=== PATIENT | male | born 1940 | race Caucasian/White ===

== ENCOUNTER 2018-03-25 16:54 | Emergency (ER) | payer OTHER ==
[~2018-03-25] VITALS: Ht 177.8 cm; Wt 74.8 kg
[~2018-03-25 16:54] MED LIST: ASPIR 8181 MG PO; CENTRUM SILVER1 EAC2 PO; LIPITOR 20 MG T20 M1 PO; METOPROLOL SUCC50 MG PO
[2018-03-25] MEDS ORDERED: LIPITOR 20 MG T20 M1 PO (17:12)
[2018-03-25] MEDS ORDERED: UNICOMPLEX M TA1 TA1 PO (17:12)
[2018-03-25] MEDS ORDERED: ASPIR 8181 MG PO (17:12)
[2018-03-25] MEDS ORDERED: LOPRESSOR50 PO (17:12)
[2018-03-25 17:30] VITALS: BP 166/113
== END 2018-03-25 17:31 | disposition home or self-care (01) ==
LOC: M.ERS 16:54
DX: S61.200A Unspecified open wound of right index finger without damage to nail, initial encounter (principal); I10 Essential (primary) hypertension; E78.00 Pure hypercholesterolemia, unspecified; G56.00 Carpal tunnel syndrome, unspecified upper limb; Z85.46 Personal history of malignant neoplasm of prostate; W26.8XXA Contact with other sharp object(s), not elsewhere classified, initial encounter; Y93.89 Activity, other specified; Y92.89 Other specified places as the place of occurrence of the external cause; Y99.8 Other external cause status

== ENCOUNTER → 2019-07-30 | Outpatient (CLI) | payer MEDICARE ==
[~2019-07-30] MED LIST changes: +LOPRESSOR50 PO; +UNICOMPLEX M TA1 TA1 PO
== END ==
LOC: M.RAD 09:42
DX: M41.86 Other forms of scoliosis, lumbar region (principal); M25.78 Osteophyte, vertebrae; I70.0 Atherosclerosis of aorta; M43.8X6 Other specified deforming dorsopathies, lumbar region

== ENCOUNTER 2020-04-26 14:28 | Inpatient (IN) | payer MEDICARE ==
[~2020-04-26] VITALS: Ht 177.8 cm; Wt 74.4 kg
--- NOTE | ~2020-04-26 | CON ---
[address] [address] CONSULTATION Name: MIO PAGE Room: [address] IN M.R.#: [id number] Admission: 04/26/20 Attend Phys: Corina Aj MD Discharge: Date of : 42 Report #: [id number] THIS REPORT FOR: //name// cc: Dagoberto Neil Meng, Zhao ~ THIS REPORT FOR: //name// DATE OF SERVICE: 04/26/2020 CARDIOLOGY CONSULTATION INDICATION: Atrial fibrillation and non-ST elevation myocardial infarction. HISTORY OF PRESENT ILLNESS: The patient is a 79-year-old white male with no prior history of atrial fibrillation or coronary artery disease. He has a history of supraventricular tachycardia, status post ablation 3-4 years ago at [facility]. The patient has been having fatigue and intermittent midsternal chest discomfort for the past 4 days. A few days ago, he had a significant episode associated with some diaphoresis that resolved spontaneously. He denies palpitations. He denies any significant shortness of breath, dyspnea or orthopnea. He is without other cardiac complaint at this time. There was no radiation of the pain. Pain was not worse with deep inspiration. No change with food intake. A 12-lead EKG in the Emergency Room shows atrial fibrillation with a rapid ventricular response rate. There is voltage criteria to suggest LVH. PAST MEDICAL HISTORY: 1. Supraventricular tachycardia, status post ablation. 2. Hypertension. 3. Hyperlipidemia. 4. Prostate cancer, status post radiation therapy. 5. Nephrolithiasis. 6. Carpal tunnel release. 7. Prostate cancer, status post radiation therapy. 8. Full extraction of teeth with full dentures. FAMILY HISTORY: Noncontributory. SOCIAL HISTORY: The patient quit smoking remotely. Drinks alcohol occasionally. ALLERGIES: None reported. CURRENT MEDICATIONS: Metoprolol 50 mg daily, atorvastatin 20 mg daily, aspirin 81 mg daily, multivitamin with iron and minerals 1 [place] [address] CONSULTATION Name: MIO PAGE Kayden Room: [address]#: [id number] Admission: 04/26/20 Attend Phys: Corina Aj MD Discharge: Date of : 42 Report #: [id number] REVIEW OF SYSTEMS: Positive for fatigue, cough, low-grade fever, chest discomfort and joint pain, otherwise unremarkable. PHYSICAL EXAMINATION: VITAL SIGNS: Blood pressure 138/78, pulse is in the 90s and irregular. GENERAL: This is a pleasant gentleman in no distress. Mood and affect appropriate. HEENT: Head is normocephalic, atraumatic. Extraocular muscles intact. Mucous membranes are moist. NECK: Shows no jugular venous distention. There are no carotid bruits. CHEST: Reveals clear lung centeno, although breath sounds are diminished with prolonged expiration. CARDIOVASCULAR: Reveals an irregularly irregular rhythm. I do not appreciate gallop or murmur. ABDOMEN: Reveals normal bowel sounds. The abdomen is soft, nontender. EXTREMITIES: Shows no edema. Peripheral pulses 2+ and palpable. SKIN: Dry. LABORATORY DATA: A 12-lead EKG shows atrial fibrillation with a rapid ventricular response rate. There is evidence of left ventricular hypertrophy. There were no significant ST segment changes noted. Labs are reviewed. Peak troponin is thus far 0.3. Chest x-ray shows possible mild fibrosis. CTA of the chest shows no evidence of pulmonary embolus. There was mention of the left lower lobe infiltrate, possibly consistent with pneumonia. Also mention was coronary calcification consistent with underlying coronary artery disease. IMPRESSION AND RECOMMENDATIONS: 1. Atrial fibrillation with a moderately fast rate. We will place on amiodarone drip with bolus in an effort to establish rhythm and rate control. We will anticoagulate with heparin drip at this time. 2. Non-ST elevation myocardial infarction. Recommend invasive evaluation with coronary angiography. Further intervention will be pending the results of that study. Continue daily aspirin. 3. Hypertension. Blood pressure appears stable at this time. We will make adjustments [place] [address] CONSULTATION Name: PAGEMIO Room: [address] IN ..#: [id number] Admission: 04/26/20 Attend Phys: Corina Aj MD Discharge: Date of : 42 Report #: [id number] 4. Dyslipidemia. Continue atorvastatin at current dose. Check fasting lipid profile. By: 1742 2039[facility] Healthkayden Mcmanus MD, FACC /nt
[~2020-04-26 14:28] MED LIST changes: -AZITHROMYCIN 2250 MG PO; -CEFDINIR300 MG PO; -EFFIENT10 MG PO; -ELIQUIS5 MG PO; -NITROGLYCERIN0.4 MG SUBLING; -PACERONE 200 M200 M1 PO
[2020-04-26 14:57] LABS: ABSOLUTE BASOPHILS 0.1 thou/uL (0.0-0.2); ABSOLUTE EOSINOPHILS 0.1 thou/uL (0.0-0.7); ABSOLUTE LYMPHOCYTES 1.2 thou/uL (0.8-5.3); ABSOLUTE MONOCYTES 0.6 thou/uL (0.0-1.2); ABSOLUTE NEUTROPHILS 5.9 thou/uL (1.6-8.1); BASOPHILS 0.7 %; EOSINOPHILS 0.8 %; HEMATOCRIT 35.2 % (42.0-52.0); HEMOGLOBIN 11.7 gm/dL (14.0-18.0); MCH 29.8 pg (26.0-34.0); MCHC 33.2 g/dL (28.0-37.0); MCV 89.9 fL (80.0-100.0); MONOCYTES 8.1 %; MPV 7.9 fl. (7.2-11.1); NUCLEATED RBCS 0 /100WBC; PLATELET COUNT* 250 thou/uL (150-400); POLYS 75.4 %; RBC 3.91 mil/uL (4.50-6.00); RDW-CV 13.6 % (10.5-14.5); WBC 7.8 thou/uL (4.0-11.0)
[2020-04-26 15:05] LABS: CALCIUM 8.7 mg/dL (8.5-10.1); CREATININE 1.1 mg/dL (0.6-1.3); POTASSIUM 3.1 mmol/L (3.5-5.1)
[2020-04-26 15:11] LABS: APTT 26.1 Seconds (25.0-31.3); PROTIME 10.7 Seconds (9.20-11.50)
[2020-04-26 15:18] LABS: ALBUMIN 3.2 g/dL (3.4-5.0); MAGNESIUM 1.9 mg/dL (1.8-2.4); TOTAL BILIRUBIN 0.6 mg/dL (<0.1-1.0); TOTAL PROTEIN 8.4 g/dL (6.4-8.2)
--- NOTE | 2020-04-26 16:04 | EKG ---
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: MELY : 1940 Requested By: Henok Monsivais Order Number: [id number] MD: Sinan Zuluaga Measurements Intervals [place] Rate: 129 P: [place]: QRS: 38 QRSD: 86 T: 77 QT: 326 QTc: 478 Interpretive Statements Atrial fibrillation with a rapid ventricular response Baseline wander in lead(s) II,III,aVL,aVF,V3 No previous ECG available for comparison Electronically Signed On 04-26-2020 16:03:59 CDT by Sinan Zuluaga [email or web address] <ELECTRONICALLY SIGNED> By: Sinan Zuluaga MD, FAC 04/26/20 1603 1439 1439 Sinan Zuluaga MD, [facility] /EPI
[2020-04-26 21:00] VITALS: BP 139/75
[2020-04-26 21:16] VITALS: BP 124/60
[2020-04-27 00:56] LABS: HEMATOCRIT 29.8 % (42.0-52.0); HEMOGLOBIN 10.3 gm/dL (14.0-18.0); MCH 30.9 pg (26.0-34.0); MCHC 34.5 g/dL (28.0-37.0); MCV 89.5 fL (80.0-100.0); MPV 7.8 fl. (7.2-11.1); RBC 3.33 mil/uL (4.50-6.00); RDW-CV 13.2 % (10.5-14.5); WBC 6.8 thou/uL (4.0-11.0)
[2020-04-27 01:23] LABS: ANION GAP 7 mmol/L (7-16); BUN 11 mg/dL (7-18); CALCIUM 8.2 mg/dL (8.5-10.1); CHLORIDE 101 mmol/L (98-107); CHOLESTEROL 104 mg/dL (<200); CO2 27 mmol/L (21-32); CREATININE 0.9 mg/dL (0.6-1.3); GLUCOSE 106 mg/dL (70-99); HDL CHOLESTEROL 33 mg/dL (>40); LDL CHOLESTEROL 61 mg/dL (<100); MAGNESIUM 1.9 mg/dL (1.8-2.4); POTASSIUM 3.2 mmol/L (3.5-5.1); SERUM ASSESSMENT Clear; SODIUM 135 mmol/L (136-145); TC:HDL 3.2 Ratio (Not establshd); TRIGLYCERIDE 51 mg/dL (<150); TROPONIN-I LEVEL 0.19 ng/mL (<0.06); VLDL 10 mg/dL (<40)
[2020-04-27 04:22] VITALS: BP 165/90
[2020-04-27 08:00] VITALS: BP 154/81
--- NOTE | 2020-04-27 12:13 | 2DMMODE ---
[place] [address] 2 D/M-MODE ECHOCARDIOGRAM Name: CAMILOMIO Jana Room: [address] IN M.R.#: [id number] Admission: 04/26/20 Attend Phys: Corina Aj, Discharge: Date of : 42 Date of Service: 04/27/20 1212 Report #: [id number] THIS REPORT FOR: cc: Dagoberto Neil Meng, Zhao Holkins,Sinan Worthington MD [facility] ~ APPROVED REPORT Study performed: 04/27/2020 10:01:54 EXAM: Comprehensive 2D, Doppler, and color-flow Echocardiogram Patient Location: Bedside BSA: 1.92 HR: 75 bpm BP: 165/90 mmHg Other Information Study Quality: Good Indications Chest Pain 2D Dimensions IVSd: 18.81 (7-11mm) LVOT Diam: 20.61 (18-24mm) LVDd: 42.50 mm PWd: 11.96 (7-11mm) Ascending Ao: 34.23 (22-36mm) LVDs: 29.16 (25-40mm) Aortic Root: 29.32 mm Volumes Left Atrial Volume (Systole) LA ESV Index: 43.60 mL/m2 Aortic Valve AoV Peak Jose.: 1.34 m/s AO Peak Gr.: 7.14 mmHg LVOT Max P.27 mmHg AO Mean Gr.: 4.10 mmHg LVOT Mean P.79 mmHg LVOT Max V: 0.90 m/s AO V2 VTI: 23.29 cm LVOT Mean V: 0.63 m/s DAMION (VTI): 2.41 cm2 LVOT V1 VTI: 16.79 cm Mitral Valve E/A Ratio: 2.28 [place] [address] 2 D/M-MODE ECHOCARDIOGRAM Name: MIO PAGE Room: [address] IN M.R.#: [id number] Admission: 04/26/20 Attend Phys: Corina Aj, Discharge: Date of : 42 Date of Service: 04/27/20 1212 Report #: [id number] MV Decel. Time: 165.76 ms MV E Max Jose.: 0.80 m/s MV PHT: 48.07 ms MVA (PHT): 4.58 cm2 TDI E/Lateral E': 8.00 E/Medial E': 8.89 Medial E' Jose.: 0.09 m/s Lateral E' Jose.: 0.10 m/s Pulmonary Valve PV Peak Jose.: 0.91 m/s PV Peak Gr.: 3.34 mmHg Tricuspid Valve RAP Estimate: 5.00 mmHg TR Peak Gr.: 36.75 mmHg RVSP: 41.75 mmHg PA Pressure: 41.75 mmHg Left Ventricle The left ventricle is normal size. There is normal LV segmental wall motion. Borderline concentric left ventricular hypertrophy. Left ventricular systolic function is normal. The left ventricular ejection fraction is within the normal range. LVEF is 55-60%. Right Ventricle The right ventricle is normal size. The right ventricular systolic function is normal. Atria Left atrium is mildly dilated. The right atrium size is normal. Aortic Valve Mild aortic valve sclerosis. No aortic regurgitation is present. There is no aortic valvular stenosis. Mitral Valve The mitral valve is normal in structure. Mild mitral regurgitation. No evidence of mitral valve stenosis. Tricuspid Valve The tricuspid valve is normal in structure. Mild tricuspid regurgitation. Pulmonic Valve The pulmonary valve is normal in structure. [place] [address] 2 D/M-MODE ECHOCARDIOGRAM Name: MIO PAGE Room: [address]#: [id number] Admission: 04/26/20 Attend Phys: Corina Aj, Discharge: Date of : 42 Date of Service: 04/27/20 1212 Report #: [id number] valvular regurgitation. Great Vessels The aortic root is normal in size. IVC is normal in size and collapses >50% with inspiration. Pericardium There is no pericardial effusion. <Conclusion> The left ventricle is normal size. Borderline concentric left ventricular hypertrophy. Left ventricular systolic function is normal. The left ventricular ejection fraction is within the normal range. LVEF is 55-60%. The right ventricle is normal size. Left atrium is mildly dilated. Mild aortic valve sclerosis. There is no aortic valvular stenosis. The mitral valve is normal in structure. Mild mitral regurgitation. The tricuspid valve is normal in structure. Mild tricuspid regurgitation. IVC is normal in size and collapses >50% with inspiration. There is no pericardial effusion. There is normal LV segmental wall motion. <ELECTRONICALLY SIGNED> By: Sinan Zuluaga MD, FACC 04/27/20 121 11 11 Sinan Zuluaga MD, FACC /INF
[2020-04-27 12:47] VITALS: BP 141/78
[2020-04-27 17:02] VITALS: BP 155/86
[2020-04-27 20:00] VITALS: BP 154/84
[2020-04-28] VITALS (13 sets, daily range): BP systolic 140–168; BP diastolic 60–94
[2020-04-28 05:01] LABS: HEMOGLOBIN 11.7 gm/dL (14.0-18.0); MCH 30.6 pg (26.0-34.0); MCHC 34.2 g/dL (28.0-37.0); MCV 89.4 fL (80.0-100.0); RBC 3.81 mil/uL (4.50-6.00); WBC 6.8 thou/uL (4.0-11.0)
[2020-04-28 05:22] LABS: CALCIUM 8.8 mg/dL (8.5-10.1); MAGNESIUM 2.2 mg/dL (1.8-2.4)
--- NOTE | 2020-04-28 15:53 | EKG ---
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: [facility] : 1940 Requested By: Carmine Mcmanus Order Number: [id number] Hamida MD: Carmine Mcmanus Measurements Intervals [place] Rate: 69 P: 66 ME: 182 QRS: 17 QRSD: 100 T: 64 QT: 443 QTc: 475 Interpretive Statements Sinus rhythm Compared to ECG 04/26/2020 14:39:06 Atrial fibrillation no longer present Electronically Signed On 04-28-2020 15:53:11 CDT by Carmine Mcmanus [email or web address] <ELECTRONICALLY SIGNED> By: Carmine Mcmanus MD, FACC 04/28/20 1553 1225 1225 Carmine Mcmanus MD, FACC /EPI
--- NOTE | 2020-04-28 17:20 | CARD ---
[address] [address] CARDIAC CATH REPORT Name: PAGEMIO Jana Room: [address] IN [facility]#: [id number] Admission: 04/26/20 Attend Phys: Corina Aj MD Discharge: Date of : 42 Report #: [id number] THIS REPORT FOR: //name// cc: Dagoberto Neil Meng, Zhao ~ APPROVED REPORT Study performed: 04/28/2020 07:37:45 Patient Details Patient Status: In-Patient Room #: The patient is a 79 year-old male Event Personnel Carmine Mcmanus Corporate Quality Engineer, Estela Oropeza RN RN, Woody Garcia RTR ScrubEsteban Jessie RTR Monitor, Sinan Zuluaga Soil Sampler Procedures Performed Art Access - R femoral artery Left Heart Cath w/or w/o Coronaries REYNA w/Atherectomy Single LAD PTCA Single Vessel DIAG Hemostasis w/ Angioseal Indication Unstable angina Risk Factors Hypercholesterolemia Admission/Lab Medications/Medications given during procedure Lidocaine Subcut 14 ml, Fentanyl IV 25 mcg, Midazolam (Versed) IV 1 mg, Oxygen Nasal cannula 2 l per min, 0.9% Sodium Chloride IV 75 ml per hr, Angiomax IV 12 ml, Angiomax Drip IV 27.79 ml per hr, Aspirin PO 162 mg, Effient PO 60 mg Procedure Narrative The patient was brought urgently to the Cardiac Catheterization Laboratory and was prepped and draped in a sterile manner. The right femoral was infiltrated with 2% Lidocaine subcutaneous anesthesia. A [place] 6 FR sheath was inserted into the right femoral artery. Coronary angiography was performed using coronary diagnostic catheters. The right coronary system was accessed and visualized with a Diagnostic 6 Fr JR 4 catheter. The left coronary system was accessed and visualized with a Diagnostic 6 Fr JL [place] [address] CARDIAC CATH REPORT Name: PAGEDIANESHIVA Bates Room: [address] IN [facility]#: [id number] Admission: 04/26/20 Attend Phys: Corina Aj MD Discharge: Date of : 42 Report #: [id number] left ventricle was accessed and visualized with a Diagnostic 6 Fr Pigtail catheter. Left ventricular/Aortic Valve gradient assessed via catheter pullback. Left ventriculogram was performed in BURRIS projection. Pre-demployment femoral angiogram was performed BURRIS. Closure device was deployed with a Fr Angioseal STS 6Fr. The patient tolerated the procedure well and there were no complications associated with the procedure. There was no hematoma. Intraoperative Conscious Sedation Sedation start time: 08:46 Case end Time: 09:55 Fentanyl 50 mcg Versed 2 mg Fluoro Time: 18.1 minutes Dose: DAP [id number] cGycm2 2614 mGy Contrast Type and Amount: Visipaque 345 ml Diagnostic Cath Left Main 0% narrowing LAD 80% mid vessel stenosis with 80% ostial first diagonal stenosis Circumflex Sequential 90 and 80% stenosis of the distal circumflex after the takeoff of the second marginal branch Right Coronary Large dominant vessel with 30% proximal mid and distal narrowings and aneurysmal dilatation of several segments Left Ventriculography The left ventricle is normal in size with contractility. The left ventricular ejection fraction is estimated to be 65-70%. Left ventricular wall motion abnormalities are not present. There is no mitral insufficiency. Hemodynamics The aortic pressure is 172/90 mmHg with a mean of 125 mmHg. The left ventricular pressure is 173/17 mmHg with a mean of mmHg. The left ventricular end diastolic pressure is 23 mmHg. PCI Technique Lesion Anticoagulation was achieved with Angiomax Drip. Patient was preloaded with Angiomax IV 12 ml. Percutaneous coronary intervention was performed on the mid left anterior descending artery segment. The lesion stenosis prior to intervention was 80% with JESSE 3 flow. A 6FR LAUNCHER EBU 4.0 Guide Catheter was used to engage the left ostium. A IG: BMW 190cm Interventional Guidewire was [place] [address] CARDIAC CATH REPORT Name: MIO PAGE Room: [address] IN M.R.#: [id number] Admission: 04/26/20 Attend Phys: Corina Aj MD Discharge: Date of : 42 Report #: [id number] BALLOON DILATION A Balloon catheter NC Euphora 2.5x12 was inserted and inflated up to 18.00atm for 15seconds. Additional Inflation: 24.00atm for 11seconds. A cutting balloon catheter Angiosculpt PTCA 2.5 x 10 was inserted and inflated up to 12 KAITY for 16 seconds and 15 KAITY for14 seconds. STENT DEPLOYMENT A drug-eluting stent [place] RX Stent 2.5X12mm was inserted and inflated up to 14.00atm for 8seconds. Additional Inflation: 15.00atm for 8seconds. Final angiography reveals 10 % stenosis with JESSE 3 flow. COMMENTS The PCI was technically complex by severe calcification throughout the LAD system requiring significant lesion preparation including atherotomy/atherectomy prior to stent deployment in the mid LAD and with pre-and post PTCA of the first diagonal emanating from the bifurcation. PCI Technique Lesion 2 Percutaneous Coronary Intervention was performed on the first diagnonal branch segment. Patient was preloaded with Angiomax IV 12 ml. A 6FR LAUNCHER EBU 4.0 Guide Catheter was used to engage the left ostium. A blabfeed: 8th Story 180cm Interventional Guidewire was used to cross the lesion. Balloon Dilation A Balloon catheter Mini Trek RX 2.0 X 8 was inserted and inflated up to 8.00atm for 10seconds. Additional Inflation: 12.00atm for 10seconds. Additional Inflation: 12.00atm for 6seconds. A balloon catheter Mini Trek 1.5 x 8 was inserted and inflated up to 16 KAITY for 12 seconds and 18 KAITY for 9 seconds. Conclusion 1. 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 Hyperdynamic left ventricular systolic function, estimated ejection fraction being 65 -70% 3. Moderate systemic systolic hypertension with moderate elevation of left ventricular end-diastolic pressure at rest 4. Successful atherotomy/atherectomy with stenting of the mid LAD with 10% residual narrowing at the site of previously noted 80% calcified stenosis 5. Successful PTCA at the site of 80% ostial first diagonal stenosis with 30% residual narrowing and JESSE III flow to the distal diagonal branch Recommendations Cardiac Risk Reduction Program Aggressive Medical Therapy Medications Administered Aspirin (any) Prasugrel Diagnostic Cath Approved by: Carmine Mcmanus MD Date/Time: 04/28/2020 17:14:58 <ELECTRONICALLY SIGNED> By: Sinan Zuluaga MD, FACC 04/28/201719 19 19Sinan Zuluaga MD, FACC /INF
[2020-04-29] VITALS: BP 153/86
[2020-04-29 04:00] VITALS: BP 150/77
[2020-04-29 05:45] LABS: HEMATOCRIT 33.4 % (42.0-52.0); HEMOGLOBIN 11.2 gm/dL (14.0-18.0); MCHC 33.6 g/dL (28.0-37.0); MCV 89.4 fL (80.0-100.0); RBC 3.74 mil/uL (4.50-6.00); RDW-CV 13.1 % (10.5-14.5); WBC 12.1 thou/uL (4.0-11.0)
[2020-04-29 06:00] LABS: ALBUMIN 2.9 g/dL (3.4-5.0); CALCIUM 8.6 mg/dL (8.5-10.1); POTASSIUM 3.8 mmol/L (3.5-5.1); TOTAL BILIRUBIN 0.3 mg/dL (<0.1-1.0); TOTAL PROTEIN 7.7 g/dL (6.4-8.2)
[2020-04-29 07:45] VITALS: BP 175/101
[2020-04-29] MEDS ORDERED: NITROGLYCERIN0.4 MG SUBLING (08:22)
[2020-04-29] MEDS ORDERED: PACERONE 200 M200 M1 PO (08:22)
[2020-04-29] MEDS ORDERED: EFFIENT10 MG PO (08:22)
[2020-04-29] MEDS ORDERED: ELIQUIS5 MG PO (08:22)
[2020-04-29] MEDS ORDERED: CEFDINIR300 MG PO (10:09)
[2020-04-29] MEDS ORDERED: AZITHROMYCIN 2250 MG PO (10:09)
--- NOTE | 2020-04-29 11:21 | EKG ---
[place] [address] ELECTROCARDIOGRAM REPORT Name: MIO PAGE Room: [address] ADM IN .R.#: [id number] Admission: 04/26/20 Attend Phys: Corina Aj, Discharge: Date of : 42 Date of Service: 04/29/20 0731 Report #: [id number] THIS REPORT FOR: //name// [facility] Test Date: 2020-04-29 Test Time: 07:31:38 Pat Name: MIO PAGE Department: Room: [address] Gender: M Guidance Director: DEZ : 1940 Requested By: Carmine Mcmanus Order Number: [id number] Reading MD: Giovanni Billy Measurements Intervals [place] Rate: 67 P: 20 [place]: 182 QRS: -17 QRSD: 97 T: 36 QT: 457 QTc: 483 Interpretive Statements Sinus rhythm Borderline left axis deviation RSR' in V1 or V2, probably normal variant Borderline prolonged QT interval Baseline wander in lead(s) V1 Compared to ECG 04/28/2020 12:25:51 no change Electronically Signed On 04-29-2020 11:21:49 CDT by Giovanni Billy [email or web address] <ELECTRONICALLY SIGNED> By: Giovanni Billy MD, FACC 04/29/20 1121 Giovanni Billy MD, FACC /EPI
[2020-04-29 12:00] VITALS: BP 163/87
[2020-04-29 14:25] VITALS: BP 163/87
== END 2020-04-29 15:14 | disposition home or self-care (01) | DRG 246 ==
LOC: M.ERS 14:28 → M.TBA-ER 15:39 → M.2W 15:39
PROVIDERS: Family Medicine; Internal Medicine; Internal Medicine Cardiovascular Disease; ADMIT Internal Medicine; ATTEND Internal Medicine
PROC: B215YZZ Fluoroscopy of Left Heart using Other Contrast (ICD-10-PCS; principal; 2020-04-28)
PROC: 02C03ZZ Extirpation of Matter from Coronary Artery, One Artery, Percutaneous Approach (ICD-10-PCS; principal; 2020-04-28)
PROC: 4A023N7 Measurement of Cardiac Sampling and Pressure, Left Heart, Percutaneous Approach (ICD-10-PCS; principal; 2020-04-28)
PROC: 02703DZ Dilation of Coronary Artery, One Artery with Intraluminal Device, Percutaneous Approach (ICD-10-PCS; principal; 2020-04-28)
PROC: B41FYZZ Fluoroscopy of Right Lower Extremity Arteries using Other Contrast (ICD-10-PCS; principal; 2020-04-28)
PROC: B211YZZ Fluoroscopy of Multiple Coronary Arteries using Other Contrast (ICD-10-PCS; principal; 2020-04-28)
PROC: 027034Z Dilation of Coronary Artery, One Artery with Drug-eluting Intraluminal Device, Percutaneous Approach (ICD-10-PCS; principal; 2020-04-28)
DX: I21.4 Non-ST elevation (NSTEMI) myocardial infarction (principal); J15.6 Pneumonia due to other Gram-negative bacteria; I10 Essential (primary) hypertension; E78.00 Pure hypercholesterolemia, unspecified; I48.91 Unspecified atrial fibrillation; E78.5 Hyperlipidemia, unspecified; Z20.828 Contact with and (suspected) exposure to other viral communicable diseases; Z92.3 Personal history of irradiation; Z87.891 Personal history of nicotine dependence; Z85.46 Personal history of malignant neoplasm of prostate; Z87.442 Personal history of urinary calculi

== ENCOUNTER → 2020-04-26 | Outpatient (CLI) | payer MEDICARE ==
[~2020-04-26] MED LIST changes: +AZITHROMYCIN 2250 MG PO; +CEFDINIR300 MG PO; +EFFIENT10 MG PO; +ELIQUIS5 MG PO; +NITROGLYCERIN0.4 MG SUBLING; +PACERONE 200 M200 M1 PO
[2020-04-26 12:00] LABS: ABSOLUTE LYMPHOCYTES 1.1 thou/uL (0.8-5.3); ABSOLUTE MONOCYTES 0.6 thou/uL (0.0-1.2); ABSOLUTE NEUTROPHILS 5.4 thou/uL (1.6-8.1); BASOPHILS 0.6 %; EOSINOPHILS 0.5 %; HEMOGLOBIN 11.4 gm/dL (14.0-18.0); LYMPHOCYTES 15.2 %; MCH 30.5 pg (26.0-34.0); MCHC 33.6 g/dL (28.0-37.0); MCV 90.6 fL (80.0-100.0); MONOCYTES 8.9 %; MPV 7.7 fl. (7.2-11.1); NUCLEATED RBCS 0 /100WBC; PLATELET COUNT* 245 thou/uL (150-400); POLYS 74.8 %; RBC 3.76 mil/uL (4.50-6.00); RDW-CV 13.6 % (10.5-14.5); WBC 7.2 thou/uL (4.0-11.0)
[2020-04-26 12:29] LABS: CALCIUM 8.7 mg/dL (8.5-10.1); CREATININE 0.9 mg/dL (0.6-1.3); POTASSIUM 3.5 mmol/L (3.5-5.1)
[2020-04-26 12:41] LABS: ALBUMIN 3.2 g/dL (3.4-5.0); TOTAL BILIRUBIN 0.6 mg/dL (<0.1-1.0)
== END ==
LOC: M.LAB 11:20
PROVIDERS: ATTEND Internal Medicine
DX: J84.10 Pulmonary fibrosis, unspecified (principal); J98.11 Atelectasis

== ENCOUNTER → 2020-05-25 | Outpatient (CLI) | payer MEDICARE ==
[~2020-05-25] MED LIST changes: +AZITHROMYCIN 2250 MG PO; +CEFDINIR300 MG PO; +EFFIENT10 MG PO; +ELIQUIS5 MG PO; +NITROGLYCERIN0.4 MG SUBLING; +PACERONE 200 M200 M1 PO
== END ==
LOC: M.RAD 13:29
PROVIDERS: ATTEND Internal Medicine
DX: J18.9 Pneumonia, unspecified organism (principal); J84.10 Pulmonary fibrosis, unspecified

== ENCOUNTER 2020-06-29 07:43 | Observation (INO) | payer MEDICARE ==
[2020-06-29] VITALS (35 sets, daily range): BP systolic 51–1096; BP diastolic 21–95
[~2020-06-29] VITALS: Ht 177.8 cm; Wt 77.1 kg
[2020-06-29 08:38] LABS: HEMATOCRIT 38.7 % (42.0-52.0); HEMOGLOBIN 12.9 gm/dL (14.0-18.0); MCH 29.9 pg (26.0-34.0); MCHC 33.4 g/dL (28.0-37.0); MCV 89.5 fL (80.0-100.0); MPV 7.7 fl. (7.2-11.1); RBC 4.33 mil/uL (4.50-6.00); RDW-CV 14.8 % (10.5-14.5); WBC 6.1 thou/uL (4.0-11.0)
[2020-06-29 08:50] LABS: APTT 24.3 Seconds (25.0-31.3); PROTIME 10.6 Seconds (9.20-11.50)
[2020-06-29] MEDS ORDERED: AMIODARONE HCL400 MG PO (08:59)
[2020-06-29 09:02] LABS: ALBUMIN 3.8 g/dL (3.4-5.0); ALKALINE PHOSPHATASE 82 U/L (46-116); ANION GAP 8 mmol/L (7-16); BUN 16 mg/dL (7-18); CALCIUM 8.7 mg/dL (8.5-10.1); CHLORIDE 102 mmol/L (98-107); CHOLESTEROL 176 mg/dL (<200); CO2 29 mmol/L (21-32); CREATININE 1.3 mg/dL (0.6-1.3); GLUCOSE 90 mg/dL (70-99); HDL CHOLESTEROL 53 mg/dL (>40); LDL CHOLESTEROL 108 mg/dL (<100); POTASSIUM 3.9 mmol/L (3.5-5.1); SGOT 28 U/L (15-37); SGPT 41 U/L (30-65); SODIUM 139 mmol/L (136-145); TC:HDL 3.3 Ratio (Not establshd); TOTAL BILIRUBIN 0.6 mg/dL (<0.1-1.0); TOTAL PROTEIN 8.2 g/dL (6.4-8.2); TRIGLYCERIDE 79 mg/dL (<150); VLDL 16 mg/dL (<40)
[2020-06-29 09:04] LABS: SERUM ASSESSMENT Clear
[2020-06-29] MEDS ORDERED: LISINOPRIL10 MG PO (09:05)
--- NOTE | 2020-06-29 18:22 | EKG ---
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: NEGIN : 1940 Requested By: Sinan Zuluaga Order Number: [id number] Reading MD: Connor Judd Measurements Intervals [place] Rate: 75 P: -36 SD: 168 QRS: -32 QRSD: 100 T: 67 QT: 414 QTc: 463 Interpretive Statements Sinus rhythm Left axis deviation RSR' in V1 or V2, right VCD or RVH Compared to ECG 04/29/2020 07:31:38 Right ventricular hypertrophy now present Electronically Signed On 06-29-2020 18:22:15 PSYCHIATRIC ARNP by Connor Judd [email or web address] <ELECTRONICALLY SIGNED> By: Kacey Judd MD, FACC 06/29/20 1822 7 Kacey Judd MD, FAC /EPI
--- NOTE | 2020-06-29 18:25 | EKG ---
[place] [address] ELECTROCARDIOGRAM REPORT Name: MOI PAGE Room: [address] M.R.#: [id number] Admission: 06/29/20 Attend Phys: Pavel Pleitez Discharge: Date of : 42 Date of Service: 06/29/20 1231 Report #: [id number] THIS REPORT FOR: //name// [facility] Test Date: 2020-06-29 Test Time: 12:31:10 Pat Name: MIO PAGE Department: Room: [facility] Gender: M Log Scaler: NEGIN : 1940 Requested By: Sinan Zuluaga Order Number: [id number] Reading MD: Connor Judd Measurements Intervals [place] Rate: 90 P: -37 [place]: 188 QRS: -46 QRSD: 101 T: 53 QT: 382 QTc: 468 Interpretive Statements Sinus rhythm LAD, consider left anterior fascicular block ST depr, consider ischemia, anterior leads Compared to ECG 06/29/2020 09:08:40 Possible ischemia now present Left-axis deviation no longer present Right ventricular hypertrophy no longer present Electronically Signed On 06-29-2020 18:25:23 DIRECTOR OF ROTC by Connor Judd [email or web address] <ELECTRONICALLY SIGNED> By: Kacey Judd MD, FACC 06/29/20 1825 1231 1231 Kacey Judd MD, [facility] /EPI
--- NOTE | 2020-06-29 18:26 | EKG ---
[place] [address] ELECTROCARDIOGRAM REPORT Name: MIO PAGE Room: [address] M.R.#: [id number] Admission: 06/29/20 Attend Phys: Pavel Pleitez Discharge: Date of : 42 Date of Service: 06/29/20 1240 Report #: [id number] THIS REPORT FOR: //name// [facility] Test Date: 2020-06-29 Test Time: 12:40:14 Pat Name: MIO PAGE Department: Room: [facility] Gender: M Pick And Shovel Man: NEGIN : 1940 Requested By: Sinan Zuluaga Order Number: [id number] Reading MD: Connor Judd Measurements Intervals [place] Rate: 75 P: -23 ID: 183 QRS: -46 QRSD: 102 T: 59 QT: 420 QTc: 470 Interpretive Statements Sinus rhythm LAD, consider left anterior fascicular block Minimal ST depression, anterolateral leads Compared to ECG 06/29/2020 12:31:10 ST (T wave) deviation now present Anterolateral ischemia cannot be excluded Electronically Signed On 06-29-2020 18:26:28 METAL SPRAYING MACHINE OPERATOR by Connor Judd [email or web address] <ELECTRONICALLY SIGNED> By: Kacey Judd MD, FACC 06/29/20 1826 1240 1240 Kacey Judd MD, FAC /EPI
--- NOTE | 2020-06-29 18:26 | EKG ---
[place] [address] ELECTROCARDIOGRAM REPORT Name: MIO PAGE Room: [address] M.R.#: [id number] Admission: 06/29/20 Attend Phys: Pavel Pleitez Discharge: Date of : 42 Date of Service: 06/29/20 1328 Report #: [id number] THIS REPORT FOR: //name// Test Date: 2020-06-29 Test Time: 13:28:56 Pat Name: MIO PAGE Department: Room: [facility] Gender: M Swimming Pool Maintenance: JADE : 1940 Requested By: Sinan Zuluaga Order Number: [id number] Reading MD: Connor Judd Measurements Intervals [place] Rate: 67 P: 62 WY: 202 QRS: -32 QRSD: 118 T: 54 QT: 454 QTc: 480 Interpretive Statements Sinus rhythm Nonspecific intraventricular conduction delay Compared to ECG 06/29/2020 12:40:14 Intraventricular conduction delay now present ST (T wave) deviation no longer present Electronically Signed On 06-29-2020 18:26:47 ETHNOARCHAEOLOGY PROFESSOR by Connor Judd [email or web address] <ELECTRONICALLY SIGNED> By: Kacey Judd MD, [facility] 06/29/20 1826 1328 1328 Kacey Judd MD, [facility] /EPI
[2020-06-30] VITALS: BP 127/63
[2020-06-30 04:00] VITALS: BP 111/64
[2020-06-30 04:34] LABS: HEMATOCRIT 29.3 % (42.0-52.0); MCH 30.3 pg (26.0-34.0); MCHC 33.3 g/dL (28.0-37.0); MPV 8.2 fl. (7.2-11.1); RBC 3.22 mil/uL (4.50-6.00); RDW-CV 14.5 % (10.5-14.5); WBC 6.3 thou/uL (4.0-11.0)
[2020-06-30 04:51] LABS: ALBUMIN 2.7 g/dL (3.4-5.0); CALCIUM 7.9 mg/dL (8.5-10.1); TOTAL BILIRUBIN 0.3 mg/dL (<0.1-1.0); TOTAL PROTEIN 6.1 g/dL (6.4-8.2)
[2020-06-30 05:06] LABS: TROPONIN-I LEVEL 0.62 ng/mL (<0.06)
[2020-06-30 05:27] LABS: HEMOGLOBIN 9.8 gm/dL (14.0-18.0)
[2020-06-30 08:00] VITALS: BP 131/105
--- NOTE | 2020-06-30 10:01 | D ---
[address] [address] DISCHARGE SUMMARY Name: MIO PAGE Room: [address] No Olsen#: [id number] Admission: 06/29/20 Attend Phys: Sinan Zuluaga MD, Discharge: Date of : 42 Report #: [id number] THIS REPORT FOR: cc: Dagoberto Neil Meng, Zhao ~ Holkins, John M. MD [facility] FIN[facility] DISCHARGE DIAGNOSES: 1. Unstable angina. 2. Coronary artery disease. 3. Status post percutaneous coronary intervention with angioplasty and stenting of the circumflex. 4. Hypertension. 5. Hyperlipidemia. 6. Paroxysmal atrial fibrillation. 7. Paroxysmal supraventricular tachycardia. PROCEDURES: On 06/29/2020 -- left heart catheterization, selective coronary arteriography, and percutaneous coronary intervention with stenting of the proximal and distal circumflex with 2 drug-eluting stents deployed. The patient is a very pleasant 79-year-old male who recently presented with acute coronary syndrome and underwent PCI to the LAD and diagonal. He had high-grade circumflex stenosis noted at that time, which were not approached in the acute setting. He presented with recurrent chest discomfort and underwent recatheterization on 06/29/2020, which revealed widely patent LAD stents. There was approximately 80% ostial circumflex narrowing with tandem 90% distal circumflex narrowing. After extensive lesion preparation, I deployed one 2.0 x 22 mm Alexis drug-eluting stent in the distal circumflex and one 2.5 x 8 mm Alexis in the ostial proximal circumflex with 0 and 10% residual narrowings distally and proximally. He developed a vagal reaction post-procedure with a minimal hematoma at the left femoral site, which was compressed. After resuscitation with fluids, atropine and low-dose dopamine, systemic pressure returned to normal. He had transitory EKG changes, which completely resolved. Troponin mathew minimally to 0.62. He had no further chest discomfort. He ambulated in the hallways without difficulty and there was good hemostasis at the femoral site of catheterization. LABORATORY DATA: On 06/30 revealed a sodium 139, potassium 4.0, BUN 15, creatinine 1.0. Hemoglobin 9.8; white blood cell count 6300 with 193,000 platelets. Troponin mathew minimally to 0.62. DISCHARGE MEDICATIONS: The patient was discharged to home in stable condition on the following medications: Aspirin, prasugrel 10 mg daily, lisinopril [address] [place] [address] DISCHARGE SUMMARY Name: MIO PAGE Room: [address]#: [id number] Admission: 06/29/20 Attend Phys: Sinan Zuluaga MD, Discharge: Date of : 42 Report #: [id number], Lipitor 20 mg daily, amiodarone 200 mg daily, p.r.n. sublingual nitroglycerin, and resumption of Eliquis at 5 mg b.i.d. on 07/01/2020. I will plan to see the patient in the office on 07/28/2020, at 1330 at the [facility]. <ELECTRONICALLY SIGNED> By: Sinan Zuluaga MD, [facility] 06/30/20 1001 [id number] [id number] Zuluaga MD, FACC /nt
[2020-06-30 11:26] VITALS: BP 131/105
[2020-06-30 11:51] VITALS: BP 131/105
--- NOTE | 2020-06-30 14:57 | CARD ---
[address] [address] CARDIAC CATH REPORT Name: MIO PAGE Room: [address] No Olsen#: [id number] Admission: 06/29/20 Attend Phys: Sinan Zuluaga MD, Discharge: 06/30/20 Date of : 42 Report #: [id number] THIS REPORT FOR: cc: Dagoberto Neil Meng, Zhao ~ Sinan Zuluaga MD [facility] APPROVED REPORT Study performed: 06/29/2020 09:55:58 Patient Details Patient Status: Out-Patient Room #: The patient is a 79 year-old male Event Personnel Sinan Zuluaga Tapper Bit, Analy Mar RN Web Content Coordinator, Tony Fernandez LINER CHECKER Monitor, Samuel Modi LINER CHECKER Scrub Procedures Performed Art Access - R femoral artery* Left Heart Cath w/or w/o Coronaries [id number] [facility] w/wo Plasty Single CIRC [id number] Indication Unstable angina Risk Factors Hypercholesterolemia, Hypertension Previous Procedures/Diagnoses Previous PCI Procedure Narrative The patient was brought electively to the Cardiac Catheterization Laboratory and was prepped and draped in a sterile manner. The left femoral was infiltrated with 1% Lidocaine subcutaneous anesthesia. A 6F pinnacle sheath was inserted into the right femoral artery. Coronary angiography was performed using coronary diagnostic catheters. The right coronary system was accessed and visualized with a JR4 catheter. The left coronary system was accessed and visualized with a JL4 catheter. The left ventricle was accessed and visualized with a Pig Tail catheter. Left ventricular/Aortic Valve gradient assessed via catheter pullback. Pre-demployment femoral angiogram was performed . The patient tolerated the procedure well [place] [address] CARDIAC CATH REPORT Name: CAMILODIANESHIVA Bates Room: [address] No Olsen#: [id number] Admission: 06/29/20 Attend Phys: Sinan Zuluaga MD, Discharge: 06/30/20 Date of : 42 Report #: [id number] no complications associated with the procedure. There was no hematoma. Intraoperative Conscious Sedation Sedation start time: 09:57 Case end Time: 11:27 Fentanyl 50 mcg Versed 3 mg Fluoro Time: 27.4 minutes Dose: DAP 175465 cGycm2 3877 mGy Contrast Type and Amount: Visipaque 500 ml Diagnostic Cath Left Main 20% ostial proximal narrowing LAD Widely patent mid LAD stent with 30% distal LAD narrowing Circumflex 80% calcified ostial proximal circumflex narrowing with 90% stenosis of the distal circumflex after the second marginal branch Right Coronary Large dominant vessel with 30% proximal and distal narrowing with aneurysmal dilatation of the midportion Left Ventriculography The left ventricle is normal in size with normal contractility. The left ventricular ejection fraction is estimated to be 60%. Left ventricular wall motion abnormalities are not present. There is no mitral insufficiency. Hemodynamics The aortic pressure is 175/70 mmHg with a mean of 112 mmHg. The left ventricular pressure is 169/0 mmHg with a mean of mmHg. The left ventricular end diastolic pressure is 14 mmHg. There was no gradient across the aortic valve upon pullback. PCI Technique Lesion Anticoagulation was achieved with Angiomax Drip. Patient was preloaded with Angiomax IV 14 ml. Percutaneous coronary intervention was performed on the distal circumflex artery segment. The lesion stenosis prior to intervention was 90% with JESSE 3 flow. A 6FR LAUNCHER EBU 3.5 Guide Catheter was used to engage the right ostium. A IG: BMW 190cm Interventional Guidewire was used to cross the lesion. BALLOON DILATION A Balloon catheter Mini Trek RX 2.0 X 12 was [place] [address] CARDIAC CATH REPORT Name: PAGEDIANESHIVA Bates Room: [address] Pretty#: [id number] Admission: 06/29/20 Attend Phys: Sinan Zuluaga MD, Discharge: 06/30/20 Date of : 42 Report #: [id number] to 10.00atm for 6seconds. Additional Inflation: 12.00atm for 8seconds. STENT DEPLOYMENT A drug-eluting stent [place] RX Stent 2.0X22mm was inserted and inflated up to 16.00atm for 5seconds. Additional Inflation: 17.00atm for 5seconds. POST STENT DEPLOYMENT BALLOON DILATION A Balloon catheter [place] Trek RX 2.0 X 12 was inserted and inflated up to 12.00atm for 6seconds. Additional Inflation: 12.00atm for 4seconds. Final angiography reveals 0 % stenosis with JESSE 3 flow. COMMENTS The PCI to the circumflex was complex by virtue of severe circumflex calcification requiring significant lesion preparation prior to stent deployment PCI Technique Lesion 2 Percutaneous Coronary Intervention was performed on the proximal circumflex artery segment. The lesion stenosis prior to intervention was 80% with JESSE 3 flow. Balloon Dilation A Balloon catheter NC Trek RX 2.5 X 8 was inserted and inflated up to 16.00atm for 9seconds. Additional Inflation: 20.00atm for 11seconds. Stent Deployment A drug-eluting stent Xience Princess 2.5X8mm was inserted and inflated up to 12.00atm for 6seconds. Additional Inflation: 14.00atm for 7seconds. Additional Inflation: 16.00atm for 12seconds. Final angiography reveals 10 % stenosis with JESSE 3 flow. Conclusion 1. Significant coronary artery disease characterized by the following: A 20% ostial proximal left [place] [address] CARDIAC CATH REPORT Name: MIO PAGE Room: [address] No Olsen#: [id number] Admission: 06/29/20 Attend Phys: Sinan Zuluaga MD, Discharge: 06/30/20 Date of : 42 Report #: [id number] B widely patent mid LAD stent with 50% distal LAD narrowing C nondominant circumflex with 80% ostial proximal calcified stenosis and 90% calcified distal circumflex stenosis D dominant right coronary artery with 30% proximal and distal narrowings with aneurysmal dilatation of the midportion 2. Normal left ventricular systolic function estimated ejection fraction being 60% 3. Successful PCI with deployment of sequential drug-eluting stents at the sites of 80% calcified ostial and 90% distal circumflex stenosis with 10 and 0% residual narrowings and JESSE-3 flow to the distal vessel Recommendations Cardiac Risk Reduction Program Aggressive Medical Therapy Medications Administered Aspirin (any) Prasugrel Diagnostic Cath Approved by: Sinan Zuluaga MD Date/Time: 06/30/2020 14:56:07 <ELECTRONICALLY SIGNED> By: Sinan Zuluaga MD, [facility] 06/30/20 1456 1456 1456Sinan Zuluaga MD, FACC /INF
--- NOTE | 2020-06-30 17:29 | EKG ---
[place] [address] ELECTROCARDIOGRAM REPORT Name: MIO PAGE Room: [address] MR.#: [id number] Admission: 06/29/20 Attend Phys: Pavel Pleitez Discharge: 06/30/20 Date of : 42 Date of Service: 06/30/2030 Report #: [id number] THIS REPORT FOR: //name// [facility] Test Date: 2020-06-30 Test Time: 06:30:31 Pat Name: MIO PAGE Department: Room: [facility] Gender: M Custom Clothier: ANJU : 1940 Requested By: Sinan Zuluaga Order Number: [id number] Reading MD: Sinan Zuluaga Measurements Intervals [place] Rate: 66 P: -30 CO: 182 QRS: -24 QRSD: 102 T: 52 QT: 425 QTc: 446 Interpretive Statements Sinus rhythm Borderline left axis deviation RSR' in V1 or V2, probably normal variant Baseline wander in lead(s) V2 Compared to ECG 06/29/2020 13:28:56 RSR' in V1 or V2 now present Intraventricular conduction delay no longer present Electronically Signed On 06-30-2020 17:29:42 INFANTRY OFFICER by Sinan Zuluaga [email or web address] <ELECTRONICALLY SIGNED> By: Sinan Zuluaga MD, [facility] 06/30/20 1729 9 9 Sinan Zuluaga MD, [facility] /EPI
== END 2020-06-30 13:00 | disposition home or self-care (01) ==
LOC: M.CL 07:43 → M.TBA-CV 10:26 → M.2W 15:54
PROVIDERS: ADMIT Internal Medicine; ATTEND Internal Medicine
DX: I25.110 Atherosclerotic heart disease of native coronary artery with unstable angina pectoris (principal); Z20.828 Contact with and (suspected) exposure to other viral communicable diseases; I10 Essential (primary) hypertension; E78.5 Hyperlipidemia, unspecified; I48.0 Paroxysmal atrial fibrillation; Z79.82 Long term (current) use of aspirin; Z79.899 Other long term (current) drug therapy

== ENCOUNTER → 2021-05-19 | Outpatient (CLI) | payer MEDICARE ==
[~2021-05-19] MED LIST changes: +AMIODARONE HCL400 MG PO; +LISINOPRIL10 MG PO
== END ==
LOC: M.ULTRA 12:31
PROVIDERS: ATTEND Internal Medicine
DX: R79.9 Abnormal finding of blood chemistry, unspecified (principal)

== ENCOUNTER → 2021-06-21 | Outpatient (CLI) | payer MEDICARE ==
--- NOTE | 2021-06-21 16:09 | CARDNUC ---
[place] [address] CARDIAC NUCLEAR IMAGING REPORT Name: MIO PAGE Room: [facility]#: [id number] Admission: 06/21/21 Attend Phys: Pavel Pleitez Discharge: Date of : 42 Date of Service: 06/21/21 1609 Report #: [id number] THIS REPORT FOR: cc: Rashaad Arenas MD, Meng MD Liston, Michael J. MD [facility] ~ APPROVED REPORT Imaging Protocol: Rest Tc-99m/Stress Tc-99m 1 day Study performed: 06/21/2021 12:45:00 Indication: CAD s/p PCI Patient Location: Out-Patient Stress Tech: JACKIE VALENZUELA Stress Nurse: Katy Kumar RN NM Tech:BIENVENIDO Burrows Ht: 5 ft 10 in Wt: 160 lbs BSA: 1.90 m2 BMI: 22.95 Medical History Medical History: CAD s/p stent, HTN, Hyperlipidemia Medications: AMIODARONE, LISINOPRIL, NTG, DFFIENT, ELIQUIS Allergies: No known drug allergies Cardiac Risk Factors: Age, Hyperlipidemia, HTN Previous Cardiac Procedures: PCI Exercise History: Indeterminate Resting Data Rest SPECT myocardial perfusion imaging was performed in supine position 30 minutes following the intravenous injection of 10.1 mCi of Tc-99m Sestamibi. Time of rest injection: 1255 Date: 06/21/2021 The images were gated to evaluate regional wall motion and calculate left ventricular ejection fraction. Administration Route: IV Administration Site: Right AC Pharmacologic Stress Pharmacologic stress test was performed by injecting Regadenoson 0.4 mg IV push over 10-15 seconds immediately followed by the intravenous injection of 34.7 mCi of Tc-99m Sestamibi. Time of stress injection: 1400 Date: 06/21/2021 Administration Route: [place] [address] CARDIAC NUCLEAR IMAGING REPORT Name: MIO PAGE Room: [facility]#: [id number] Admission: 06/21/21 Attend Phys: Pavel Pleitez Discharge: Date of : 42 Date of Service: 06/21/21 1609 Report #: [id number] Administration Site: Right AC Gated Stress SPECT was performed 40 minutes after stress injection. The images were gated to evaluate regional wall motion and calculate left ventricular ejection fraction. Prone imaging was performed. Stress Test Details Stress Test: Pharmacologic stress testing performed using 0.4 mg of regadenoson per 5 mL given IV over 10 seconds. Reason for pharmacologic stress test: A FIB. HR Max Heart Rate (APMHR): 141 bpm Resting HR: 70 bpm Target HR (85% APMHR): 119 bpm Max HR Achieved: 90 bpm % of APMHR: 63 Recovery HR: 83 bpm BP Resting BP: 155/79 mmHg Max BP: 157/73 mmHg Recovery BP: 152/75 mmHg ECG Resting ECG: Sinus Rhythm Stress ECG: Sinus Rhythm ST Change: None Arrhythmia: None Recovery ECG: Sinus Rhythm Recovery ST Change: None Recovery Arrhythmia: None Clinical Reason for Termination: Completed protocol The patient tolerated Lexiscan infusion without significant cardiac symptoms. Stress ECG Conclusion The baseline twelve-lead EKG shows sinus rhythm without significant ST segment or T wave abnormality. EKGs obtained during and post Lexiscan infusion show sinus rhythm with no significant ST segment changes when compared to baseline. There were no stress-induced arrhythmias. Study Quality Study: Good Artifact: [place] [address] CARDIAC NUCLEAR IMAGING REPORT Name: MIO PAGE Room: [facility]#: [id number] Admission: 06/21/21 Attend Phys: Pavel Pleitez Discharge: Date of : 42 Date of Service: 06/21/21 1609 Report #: [id number] Study Data At rest, the left ventricular ejection fraction was 68%.. Post stress, the left ventricular ejection was 69%.. TID = 0.97. Perfusion Perfusion images obtained at rest and post Lexiscan stress show uniform uptake of the radioisotope throughout the myocardium. There were no defects to suggest infarct or ischemia. Wall Motion Normal left ventricular wall motion. Nuclear Conclusion ECG Findings: negative for ischemia Clinical Findings: negative for ischemia Nuclear Findings: negative for ischemia Exercise Capacity: not assessed Left Ventricular Function: normal Risk Study: low Perfusion images show no defect to suggest infarct or ischemia. Left ventricular systolic function appears normal on gated studies. This is a low risk study. <Conclusion> The baseline twelve-lead EKG shows sinus rhythm without significant ST segment or T wave abnormality. EKGs obtained during and post Lexiscan infusion show sinus rhythm with no significant ST segment changes when compared to baseline. There were no stress-induced arrhythmias. <ELECTRONICALLY SIGNED> By: Carmine Mcmanus MD, FACC 06/21/21 1609 1609 1609 Carmine Mcmanus MD, FACC /INF
== END ==
LOC: M.NUC 02-02 09:08
PROVIDERS: ATTEND Internal Medicine
DX: I25.10 Atherosclerotic heart disease of native coronary artery without angina pectoris (principal); I48.91 Unspecified atrial fibrillation; I10 Essential (primary) hypertension; I47.1 Supraventricular tachycardia; E78.00 Pure hypercholesterolemia, unspecified; Z95.5 Presence of coronary angioplasty implant and graft

== ENCOUNTER 2021-07-24 20:53 | Emergency (ER) | payer MEDICARE ==
[~2021-07-24] VITALS: Ht 177.8 cm; Wt 72.6 kg
[2021-07-24 21:38] LABS: HEMATOCRIT 31.3 % (42.0-52.0); HEMOGLOBIN 10.3 gm/dL (14.0-18.0); MCH 30.2 pg (26.0-34.0); MCHC 32.9 g/dL (28.0-37.0); MCV 91.8 fL (80.0-100.0); MPV 7.6 fl. (7.2-11.1); NUCLEATED RBCS 0 /100WBC; PLATELET COUNT* 250 thou/uL (150-400); RBC 3.41 mil/uL (4.50-6.00); RDW-CV 14.2 % (10.5-14.5); WBC 9.3 thou/uL (4.0-11.0)
[2021-07-24 21:46] LABS: CALCIUM 8.2 mg/dL (8.5-10.1); CREATININE 1.8 mg/dL (0.6-1.3); POTASSIUM 4.7 mmol/L (3.5-5.1)
[2021-07-24 21:49] LABS: APTT 23.4 Seconds (25.0-31.3); PROTIME 10.4 Seconds (9.20-11.50)
[2021-07-24 21:51] LABS: ALBUMIN 3.3 g/dL (3.4-5.0); TOTAL BILIRUBIN 0.2 mg/dL (<0.1-1.0)
[2021-07-24 22:03] LABS: ABSOLUTE LYMPHOCYTES 0.8 thou/uL (0.8-5.3); ABSOLUTE MONOCYTES 0.2 thou/uL (0.0-1.2); ABSOLUTE NEUTROPHILS 8.3 thou/uL (1.6-8.1); PLATELET ESTIMATE ADEQUATE
[2021-07-24] MEDS ORDERED: HYDROCODON-ACE1 EAC7 PO (23:21)
[2021-07-24 23:50] VITALS: BP 112/74
== END 2021-07-24 23:50 | disposition home or self-care (01) ==
LOC: M.ERS 20:53
PROVIDERS: Personal Emergency Response Attendant
DX: S70.01XA Contusion of right hip, initial encounter (principal); I10 Essential (primary) hypertension; E78.00 Pure hypercholesterolemia, unspecified; Z87.442 Personal history of urinary calculi; Z98.890 Other specified postprocedural states; Z85.46 Personal history of malignant neoplasm of prostate; Z79.899 Other long term (current) drug therapy; W10.8XXA Fall (on) (from) other stairs and steps, initial encounter; Y93.01 Activity, walking, marching and hiking; Y92.89 Other specified places as the place of occurrence of the external cause; Y99.8 Other external cause status

== ENCOUNTER → 2021-08-23 | Outpatient (CLI) | payer MEDICARE ==
[~2021-08-23] MED LIST changes: +ADULT LOW DOSE81 MG PO; +FISH OIL 1,0001 EAC9 PO; +HYDROCODON-ACE1 EAC7 PO; +NORVASC 2.5 MG2.5 M1 PO; +VITAMIN B122500 MCG PO
[2021-08-23 08:58] LABS: ABSOLUTE EOSINOPHILS 0.1 thou/uL (0.0-0.7); ABSOLUTE MONOCYTES 0.5 thou/uL (0.0-1.2); ABSOLUTE NEUTROPHILS 4.5 thou/uL (1.6-8.1); BASOPHILS 0.6 %; EOSINOPHILS 1.6 %; HEMATOCRIT 34.6 % (42.0-52.0); HEMOGLOBIN 11.2 gm/dL (14.0-18.0); LYMPHOCYTES 15.7 %; MCH 29.8 pg (26.0-34.0); MCHC 32.4 g/dL (28.0-37.0); MCV 92.1 fL (80.0-100.0); MONOCYTES 8.6 %; MPV 7.5 fl. (7.2-11.1); NUCLEATED RBCS 0 /100WBC; PLATELET COUNT* 243 thou/uL (150-400); POLYS 73.5 %; RBC 3.75 mil/uL (4.50-6.00); RDW-CV 14.3 % (10.5-14.5); WBC 6.1 thou/uL (4.0-11.0)
[2021-08-23 08:59] LABS: URINE BILIRUBIN NEGATIVE (Negative); URINE BLOOD NEGATIVE (Negative); URINE CLARITY CLEAR; URINE COLOR YELLOW; URINE GLUCOSE-RANDOM NEGATIVE (Negative); URINE KETONES TRACE (Negative); URINE LEUKOCYTES-REFLEX NEGATIVE (Negative); URINE NITRITE-REFLEX NEGATIVE (Negative); URINE PROTEIN TRACE (Negative); URINE SPECIFIC GRAVITY 1.025 (1.005-1.030); URINE UROBILINOGEN 0.2 E.U./dl (0.2-1.0)
[2021-08-23 09:07] LABS: PROTIME 10.3 Seconds (9.20-11.50)
[2021-08-23 09:09] LABS: ALBUMIN 3.4 g/dL (3.4-5.0); CALCIUM 8.6 mg/dL (8.5-10.1); CREATININE 1.5 mg/dL (0.6-1.3); POTASSIUM 5.2 mmol/L (3.5-5.1); TOTAL BILIRUBIN 0.3 mg/dL (<0.1-1.0); TOTAL PROTEIN 7.4 g/dL (6.4-8.2)
== END ==
LOC: M.LAB 06:25
PROVIDERS: ATTEND Orthopaedic Surgery
DX: Z01.818 Encounter for other preprocedural examination (principal); Z01.812 Encounter for preprocedural laboratory examination; M16.11 Unilateral primary osteoarthritis, right hip

== ENCOUNTER → 2021-08-28 | Outpatient (CLI) | payer MEDICARE | LOC: M.RAD 12:28 | PROVIDERS: ATTEND Orthopaedic Surgery | DX: Z01.812 Encounter for preprocedural laboratory examination (principal); Z20.822 Contact with and (suspected) exposure to COVID-19 ==

== ENCOUNTER 2021-08-29 08:06 | Inpatient (IN) | payer MEDICARE ==
[~2021-08-29] VITALS: Ht 177.8 cm; Wt 76.7 kg
--- NOTE | ~2021-08-29 | OP ---
[address] [address] OPERATIVE REPORT Name: MIO PAGE Room: [address] No MDanielRDaniel#: [id number] Admission: 08/29/21 Attend Phys: Javier Michele Discharge: Date of : 42 Report #: [id number] THIS REPORT FOR: cc: Rashaad Arenas MD, Meng MD Greiner, Robert F. II DO ~ DATE OF SURGERY: 08/29/2021 PREOPERATIVE DIAGNOSIS: Right hip osteoarthritis. POSTOPERATIVE DIAGNOSIS: Right hip osteoarthritis. PROCEDURE: Right total hip arthroplasty, 23-hour observation. SURGEON: Mukul Sheth II, D.O. PURCHASING ANALYST: MARCIANO Hooks. ANESTHESIA: General endotracheal. ESTIMATED BLOOD LOSS: 300 mL. ANTIBIOTICS: Ancef preoperatively. DRAINS: Medium Hemovac. COMPLICATIONS: None. CONDITION: The patient stable to recovery room. IMPLANTS: Listed in operative record and progress note. BRIEF HISTORY: The patient in the preoperative area. Preoperative H and P was performed. Site was marked, questions were answered. Risks and benefits were discussed with the patient in detail about surgery. The patient wished to proceed assuming all risks. DESCRIPTION OF PROCEDURE: The patient was taken to the operative suite, placed supine on the operating table, given appropriate anesthesia. The patient's operative hip was placed in the [place] table leg kim and sterilely prepped and draped in supine position. Surgery began by longitudinal incision over the anterior portion of the hip, was carried down to subcutaneous tissues. A small patrick was then made in tensor fascia, it was then split along its fibers and retracted laterally. An H capsulotomy was then performed and careful hemostasis was maintained with electrocautery and Aquamantys. The head and neck cutting alignment guide was then checked fluoroscopic guidance. [place] [address] OPERATIVE REPORT Name: MIO PAGE Room: [address] No Olsen#: [id number] Admission: 08/29/21 Attend Phys: Javier Michele Discharge: Date of : 42 Report #: [id number] made to the head and neck and this was removed. There was shown to be a posterior enthesophyte noted to the posterior musculature, which was left in place, although visible on fluoroscopic x-rays. There is no point impinging upon any parts of the hip or any range of motion. Attention was turned to the acetabulum. Excess labrum was removed. It was then reamed in sequential fashion up to appropriate size. This showed excellent bleeding bone and excellent position on fluoroscopic guidance. The acetabular cup was then malleted into position and secured with cancellous screws. Metal liner was then applied. The patient's leg was then rotated and extended in the [place] table to expose the femur. It was then broached in sequential fashion after appropriate size. Appropriate neck was then trialed with appropriate head length and showed excellent fit and fill and excellent stability of the hip through all range of motion. These trials were removed. The final stem was then malleted in position and the final head was then malleted into position. It was reduced in appropriate fashion, checked with C-arm for appropriate leg length. This shown excellent leg length throughout the exam without evidence of dislocation upon range of motion and shuck testing. Wound was then copiously irrigated. Hemostasis was maintained with electrocautery and Aquamantys. Pain cocktail was injected. Drain was activated. The H capsulotomy was then closed utilizing #1 Vicryl in [id number] fashion. Tensor fascia was closed with #1 Vicryl in running fashion. Skin was closed with 2-0 Vicryl and running 3-0 Monocryl with Dermabond. Sterile dressing applied. The patient transported to recovery in stable condition. Counts were correct x 2. By: [id number] Sheth II, DO /nt
[2021-08-29 09:00] VITALS: BP 153/81
--- NOTE | 2021-08-29 15:54 | EKG ---
[place] [address] ELECTROCARDIOGRAM REPORT Name: MIO PAGE TREMAINE Room: [address] M.R.#: [id number] Admission: 08/29/21 Attend Phys: Mukul Sheth, Discharge: Date of : 42 Date of Service: 08/29/21 1417 Report #: [id number] THIS REPORT FOR: //name// [facility] Test Date: 2021-08-29 Test Time: 14:17:25 Pat Name: MIO PAGE Department: Room: [place] [address] Gender: M Pta: PAIGE : 1940 Requested By: Aida Daniels Order Number: [id number] Hamida MD: Giovanni Billy Measurements Intervals [place] Rate: 75 P: 60 OR: 289 QRS: -35 QRSD: 99 T: 56 QT: 479 QTc: 536 Interpretive Statements Sinus rhythm Prolonged OR interval Nonspecific intraventricular conduction delay Borderline low voltage, extremity leads Prolonged QT Baseline wander in lead(s) V3,V4 Compared to ECG 06/30/2020 06:30:31 First degree AV block now present Prolonged QT interval now present Electronically Signed On 08-29-2021 15:53:51 FUNDS DEVELOPMENT DIRECTOR by Giovanni Billy [email or web address] <ELECTRONICALLY SIGNED> By: Giovanni Billy MD, [facility] 08/29/21 1553 16 1417 Giovanni Billy MD, [facility] /EPI
[2021-08-29 16:14] VITALS: BP 128/61
[2021-08-29 16:56] LABS: HEMATOCRIT 31.6 % (42.0-52.0); HEMOGLOBIN 10.5 gm/dL (14.0-18.0); MCH 29.9 pg (26.0-34.0); MCHC 33.1 g/dL (28.0-37.0); MCV 90.2 fL (80.0-100.0); MPV 7.7 fl. (7.2-11.1); RBC 3.5 mil/uL (4.50-6.00); RDW-CV 14.6 % (10.5-14.5)
[2021-08-29 17:33] LABS: ALBUMIN 3.4 g/dL (3.4-5.0); ALKALINE PHOSPHATASE 62 U/L (46-116); ANION GAP 10 mmol/L (7-16); BUN 23 mg/dL (7-18); CALCIUM 8.1 mg/dL (8.5-10.1); CHLORIDE 102 mmol/L (98-107); CHOLESTEROL 153 mg/dL (<200); CO2 23 mmol/L (21-32); CREATININE 1.6 mg/dL (0.6-1.3); GLUCOSE 130 mg/dL (70-99); HDL CHOLESTEROL 46 mg/dL (>40); LDL CHOLESTEROL 95 mg/dL (<100); SGOT 28 U/L (15-37); SGPT 43 U/L (30-65); SODIUM 135 mmol/L (136-145); TC:HDL 3.3 Ratio (Not establshd); TOTAL BILIRUBIN 0.4 mg/dL (<0.1-1.0); TOTAL PROTEIN 7.1 g/dL (6.4-8.2); TRIGLYCERIDE 62 mg/dL (<150); VLDL 12 mg/dL (<40)
[2021-08-29 17:34] LABS: SERUM ASSESSMENT Clear
--- NOTE | 2021-08-29 17:43 | NUR ---
PT ADMITTED TO ROOM 220 VIA BED FROM PACU AT APPROXIMATELY 1610. REPORT RECEIVED FROM SHAYLA LOUISE. PT ORIENTED TO ROOM AND CALL LIGHT. ADMISSION ASSESSMENT AND HISTORY CHARTED. PT A&0X4, DENIES ANY PAIN OR SHORTNESS OF BREATH AT THIS TIME. PER TOP CLOSER PT HAD 358 BLADDER SCAN. MARTEL CATHETER PLACED-18F WITHOUT DIFFICULTIES UP HERE ON THE FLOOR BY THIS RN. 450 OUTPUT IMMEDIATELY. TRACING SR WITH FIRST DEGREE ON THE CMM INSPECTOR. ON RA SAT UPPER 90'S. IVF. CARDIO CONSULT IN PLACE. FIRST TROPONIN NOTED-DR OAKLEY ANSWERING SERVICE NOTIFIED. AWAITING CALL BACK AT THIS TIME. PT DENIES ANY CHEST PAIN OR DISCOMFORT AT THIS TIME. MEDS PER SEP. HOURLY ROUNDING OBSERVED. BED IN LOW POSITION. BED ALARM IN PLACE. FALL PRECAUTIONS IN PLACE. CALL LIGHT WITHIN REACH. WILL CONTINUE PLAN OF CARE.
[2021-08-29 22:19] VITALS: BP 141/71
[2021-08-30] VITALS (9 sets, daily range): BP systolic 83–147; BP diastolic 39–71
--- NOTE | 2021-08-30 04:07 | NUR ---
PT A&OX4, VSS ON ROOM AIR - CAPNO IN USE. HEMOVAC IN PLACE, URINARY CATHETER IN PLACE. IV FLUIDS INFUSING ORDERED. SR WITH 1ST DEGREE AV BLOCK ON TELE MONITOR. PRN PO PAIN MEDS REQUESTED AND GIVEN ORDERED. PT SLEEPING WELL, WILL CONTINUE TO MONITOR.
[2021-08-30 04:34] LABS: HEMATOCRIT 30.1 % (42.0-52.0); HEMOGLOBIN 9.9 gm/dL (14.0-18.0)
[2021-08-30 08:23] LABS: CALCIUM 7.7 mg/dL (8.5-10.1); CREATININE 1.4 mg/dL (0.6-1.3); POTASSIUM 4.4 mmol/L (3.5-5.1)
--- NOTE | 2021-08-30 12:57 | 2DMMODE ---
[place] [address] 2 D/M-MODE ECHOCARDIOGRAM Name: MIO PAGE Room: [address] ADM IN [facility]#: [id number] Admission: 08/30/21 Attend Phys: Armond Penny Discharge: Date of : 42 Date of Service: 08/30/21 1257 Report #: [id number] THIS REPORT FOR: cc: Rashaad Arenas MD, Meng MD Blick, David R. MD [facility] ~ APPROVED REPORT Study performed: 08/30/2021 09:35:55 EXAM: Comprehensive 2D, Doppler, and color-flow Echocardiogram Patient Location: In-Patient Room #: 220 Status: routine BSA: 1.94 HR: 64 bpm BP: 129/67 mmHg Rhythm: NSR Other Information Study Quality: Good Indications Non STEMI 2D Dimensions IVSd: 9.62 (7-11mm) LVOT Diam: 20.50 (18-24mm) LVDd: 53.33 mm PWd: 8.45 (7-11mm) Ascending Ao: 36.92 (22-36mm) LVDs: 29.16 (25-40mm) Aortic Root: 33.78 mm Volumes Left Atrial Volume (Systole) LA ESV Index: 38.50 mL/m2 Aortic Valve AoV Peak Jose.: 1.80 m/s AO Peak Gr.: 13.00 mmHg LVOT Max P.07 mmHg AO Mean Gr.: 7.66 mmHg LVOT Mean P.08 mmHg LVOT Max V: 1.23 m/s AO V2 VTI: 35.07 cm LVOT Mean V: 0.81 m/s DAMION (VTI): 2.61 cm2 LVOT V1 VTI: 27.69 [place] [address] 2 D/M-MODE ECHOCARDIOGRAM Name: MIO PAGE Room: [address] IN M.R.#: [id number] Admission: 08/30/21 Attend Phys: Armond Penny Discharge: Date of : 42 Date of Service: 08/30/21 1257 Report #: [id number] Mitral Valve E/A Ratio: 1.29 MV Decel. Time: 207.19 ms MV E Max Jose.: 0.77 m/s MV PHT: 60.09 ms MVA (PHT): 3.66 cm2 TDI E/Lateral E': 7.70 E/Medial E': 7.70 Medial E' Jose.: 0.10 m/s Lateral E' Jose.: 0.10 m/s Pulmonary Valve PV Peak Jose.: 1.20 m/s PV Peak Gr.: 5.77 mmHg Tricuspid Valve RAP Estimate: 5.00 mmHg TR Peak Gr.: 22.80 mmHg RVSP: 27.00 mmHg PA Pressure: 27.00 mmHg Left Ventricle The left ventricle is normal size. There is normal LV segmental wall motion. There is normal left ventricular wall thickness. Left ventricular systolic function is normal. The left ventricular ejection fraction is within the normal range. LVEF is 60-65%. The left ventricular diastolic function is normal. Right Ventricle Right ventricle is dilated. The right ventricular systolic function is normal. Atria Left atrium is mildly dilated. Right atrium is dilated. Aortic Valve Mild aortic valve sclerosis. No aortic regurgitation is present. There is no aortic valvular stenosis. Mitral Valve The mitral valve is normal in structure. There is trace mitral valve regurgitation noted. No evidence of mitral valve stenosis. Tricuspid Valve The tricuspid valve is normal in structure. Mild tricuspid regurgitation. [place] [address] 2 D/M-MODE ECHOCARDIOGRAM Name: MIO PAGE TREMAINE Room: [address] IN [facility]#: [id number] Admission: 08/30/21 Attend Phys: Armond Penny Discharge: Date of : 42 Date of Service: 08/30/21 1257 Report #: [id number] Pulmonic Valve The pulmonary valve is normal in structure. trace pulmonic regurgitation. Great Vessels The aortic root is normal in size. IVC is normal in size and collapses >50% with inspiration. Pericardium There is no pericardial effusion. <Conclusion> LVEF is 60-65%. Left atrium is mildly dilated. Mild aortic valve sclerosis. <ELECTRONICALLY SIGNED> By: Giovanni Billy MD, FACC 08/30/21 1257 1257 1257 Giovanni Billy MD, FACC /INF
[2021-08-30 14:12] LABS: HEMATOCRIT 27.8 % (42.0-52.0); HEMOGLOBIN 9.2 gm/dL (14.0-18.0)
--- NOTE | 2021-08-30 14:39 | NUR ---
CM ATTEMPTED TO MEET WITH PT AND FAMILY TO CONDUCT ASSESSMENT, BUT PT AND FAMILY WERE MEETING WITH OTHER PROVIDERS. CM TO FOLLOW AND ATTMEPT AGAIN.
--- NOTE | 2021-08-30 18:19 | NUR ---
AT APPROXIMATELY 0820 PT WAS WORKING WITH PHYSICAL THERAPY AND PER PHYSICAL THERAPY-PT AMBULATED FROM ROOM TO END OF HALLWAY AND SAT IN RECLINER PRIOR TO ATTEMPTING STAIRS. WHEN PT STOOD UP HE BECAME DIZZY AND SAT BACK DOWN-ACCORDING TO PHYSICAL THERAPY-PT BECAME UNRESPONSIVE AND VOMITED. WHEN THIS RN ARRIVED TO SITUATION PT WAS SITTING IN WHEELCHAIR BP 83/39. PT PLACED BACK IN BED AND BP 111/51. CARDIOLOGY NOTIFIED. ORDERS RECEIVED FOR 500ML BOLUS NS. PT AMBULATED TO BATHROOM THIS EVENING WITH WALKER AND GAIT BELT. TOLERATED WELL. DENIED ANY DIZZINESS. VSS. MARTEL CATHETER DC'D AT APPROXIMATELY 1700. PT HAS NOT VOIDED YET-URINAL AT BEDSIDE AND WILL MONITOR CLOSELY. CALL LIGHT WITHIN REACH. WILL CONTINUE PLAN OF CARE.
[2021-08-31] VITALS (7 sets, daily range): BP systolic 116–153; BP diastolic 50–76
--- NOTE | 2021-08-31 03:59 | NUR ---
PT A&OX4, VSS ON ROOM AIR, IV FLUIDS INFUSING ORDERED. PT REFUSING Q2H POSITION CHANGE, STATES HE IS SHIFTING HIMSELF IN BED. SR, 1D AV BLOCK ON TELE MONITOR. PRN PAIN MED REQUESTED AND GIVEN ORDERED. TYLENOL GIVEN AT 0340 FOR TEMP OF 101.9. PT SLEEPING WELL, WILL CONTINUE TO MONITOR.
[2021-08-31 04:35] LABS: HEMATOCRIT 26.7 % (42.0-52.0); MCH 30.4 pg (26.0-34.0); MCHC 33.5 g/dL (28.0-37.0); MCV 90.6 fL (80.0-100.0); MPV 8.3 fl. (7.2-11.1); RBC 2.95 mil/uL (4.50-6.00); RDW-CV 14.4 % (10.5-14.5); WBC 8.7 thou/uL (4.0-11.0)
[2021-08-31 05:15] LABS: ALBUMIN 2.6 g/dL (3.4-5.0); CALCIUM 7.6 mg/dL (8.5-10.1); CREATININE 1.3 mg/dL (0.6-1.3); POTASSIUM 4.3 mmol/L (3.5-5.1); TOTAL BILIRUBIN 0.3 mg/dL (<0.1-1.0)
[2021-08-31] MEDS ORDERED: XARELTO10 MG PO (08:22)
[2021-08-31] MEDS ORDERED: METOPROLOL TART25 MG PO (08:22)
[2021-08-31] MEDS ORDERED: HYDROCODON-ACE1 EAC7 PO (08:22)
[2021-08-31] MEDS ORDERED: SLOW FE 160MG160 MG PO (08:28)
--- NOTE | 2021-08-31 09:35 | NUR ---
Pt came to the hospital for elective right total hip - but experienced chest pain post op and was admitted to [facility], avony floor. Pt is alert and oriented x3. Pt lives alone in a house with 12 steps to enter. His daughters are taking turns staying with him for a few days. Pt reports he does have a roller walker, cane, and shower chair. Pt has no hx of HH/SNF or DME. Pt fills his prescriptions at [facility] in [facility], and saw his PCP about a week ago. Reviewed therapy notes: Ambulation: 100ft with SBA/RW Supine to Sit: Modified independent Bed to Chair: Supervision Lower Body Dressing: Moderate Assist Discussed home health with patient and he is agreeable to this land planner arranging and has no preference for what agency. Cm to follow for discharge planning.
--- NOTE | 2021-08-31 14:58 | NUR ---
DISCHARGE ORDERS RECEIVED. DISCHARGE INSTRUCTIONS, CARE NOTES, E SCRIPTS AND FOLLOW UP APPTS GIVEN TO PT. PT COMMUNICATES UNDERSTANDING OF DISCHARGE TEACHING. IV AND ASSISTANT PROFESSOR OF SPANISH REMOVED. PT DISCHARGED WITH ALL BELONGINGS AND PAPERWORK VIA WHEELCHAIR WITH NURSING STAFF TO DAUGHTER OWN PERSONAL VEHICLE. PT DISCHARGED TO HOME WITH HOME HEALTH.
== END 2021-08-31 15:01 | disposition home health service (06) | DRG 469 ==
LOC: M.ORTHSURG → M.TBA 08:30 → M.2W 08:30 → M.ORTHSURG 08:40 → M.TBA 15:50 → M.2W 16:06
PROVIDERS: Internal Medicine; Orthopaedic Surgery; Registered Nurse; ADMIT Internal Medicine; ATTEND Internal Medicine
PROC: 0SRC0JZ Replacement of Right Knee Joint with Synthetic Substitute, Open Approach (ICD-10-PCS; principal; 2021-08-30)
DX: M16.11 Unilateral primary osteoarthritis, right hip (principal); I21.4 Non-ST elevation (NSTEMI) myocardial infarction; I48.0 Paroxysmal atrial fibrillation; Z79.01 Long term (current) use of anticoagulants; I25.10 Atherosclerotic heart disease of native coronary artery without angina pectoris; I10 Essential (primary) hypertension; E78.5 Hyperlipidemia, unspecified; I12.9 Hypertensive chronic kidney disease with stage 1 through stage 4 chronic kidney disease, or unspecified chronic kidney disease; N18.2 Chronic kidney disease, stage 2 (mild); D64.9 Anemia, unspecified; Z20.822 Contact with and (suspected) exposure to COVID-19